=== PATIENT | female | born 1945 | race Caucasian/White ===

== ENCOUNTER 2018-10-22 09:52 | Day surgery (SDC) | payer OTHER ==
[2018-10-19 16:09] LABS: Absolute Lymphocytes (CBC) 2.4 K/uL (0.7-4.9); Basophils % 0.5 % (0-1.3); Hematocrit 47.5 % (36.0-45.0); MPV 9.9 fL (7.6-11.3); RBC Red Blood Cell Count 5.03 M/uL (3.86-4.86)
--- NOTE | 2018-10-19 16:09 | EKG ---
Test Date: 2018-10-19 Test Time: 15:05:24 Senior Health Consultant: JOSEPH MEASUREMENT RESULTS: Intervals: Rate: 86 NC: 168 QRSD: 78 QT: 362 QTc: 433 [place]: P: 52 NC: 168 QRS: -15 T: 30 INTERPRETIVE STATEMENTS: Normal sinus rhythm Voltage criteria for left ventricular hypertrophy Abnormal ECG Compared to ECG 12/31/2010 11:01:59 No significant changes Electronically Signed On 10-19-18 16:09:13 CDT by Drew Calero
[2018-10-19 16:25] LABS: BUN Blood Urea Nitrogen 10 mg/dL (7-18)
[2018-10-22] MEDS ORDERED: NA CHLORIDE 0.9% 1,000 ML ONE ×2 (09:56→13:34)
[2018-10-22] MEDS ORDERED: LIDOCAINE 1% W/EPI 1:100,000 MDV 20 ML VIAL ONE (10:01)
[2018-10-22] MEDS ORDERED: NA CHLORIDE 0.9% 500 ML ONE (10:05)
[2018-10-22] MEDS ORDERED: GLYCOPYRROLATE 0.2 MG/ML SYR ONE (10:21)
[2018-10-22] MEDS ORDERED: PROPOFOL 200 MG/20 ML VIAL IV ONE (10:21)
[2018-10-22] MEDS ORDERED: FENTANYL CITR 250 MCG/5 ML ONE (10:22)
[2018-10-22] MEDS ORDERED: dexAMETHasone 10 MG/ML VIAL ONE (10:22)
[2018-10-22] MEDS ORDERED: MIDAZOLAM HCL 2 MG/2 ML INJ ONE (10:22)
[2018-10-22] MEDS ORDERED: ROCURONIUM 50 MG/5 ML VIAL IV ONE (10:22)
[2018-10-22] MEDS ORDERED: LIDOCAINE 2% MPF 5 ML VIAL ONE (10:22)
[2018-10-22] MEDS: OXYMETAZOLINE HCL 0.05% 15ML NAS ONE ×4 (10:30→13:10)
[2018-10-22] MEDS ORDERED: Phenylephrine HCl 10 MG/ML 1 ML VIAL ONE (12:27)
[2018-10-22] MEDS ORDERED: FENTANYL CITR 100 MCG/2 ML ONE (12:57)
[2018-10-22] MEDS ORDERED: ACETAMINOPHEN 325 MG TABLET ONE (14:31)
--- NOTE | 2018-10-23 12:21 | OP ---
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 Procedure: Nasal endoscopy with excision of nasal cavity mass. Surgical Findings: Large inverting papilloma filling the left nasal cavity with attachment point schuyler und the superior turbinate. Indication For Procedure: Yisel Hernandez is a 72-year-old who presented to the [facility] in March with a complaint of cerumen impaction. Head and neck exam at that time revealed a left nasal cavity mass with surrounding infection. 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 The patient elected not to have the CT s can and did not follow up with the ENT clinic as instructed. She re-presented in August after her dent al hygienist was concerned about lymphadenopathy. On clinical exam, there was no palpable lymphadeno monica, but the left nasal cavity mass was again noted. Its appearance was not consistent with inflam matory polyp and a biopsy in the office was collected, which confirmed inverting papilloma. I discus sed these results with the patient over the telephone and she deferred decision making for surgery un til she could discuss with her . The patient presented for preoperative evaluation. A contra sted CT scan was ordered and performed approximately 48 hours prior to her surgery. In review of the CT findings, a distinct attachment point was not clearly defined, but my suspicion was for an attach ment point near the posterior ethmoid or sphenoid face near the area of the superior turbinate. Description Of Procedure: The patient was brought to the operating room. She was placed under gener al anesthesia via oral endotracheal tube. The head of bed was turned 90 degrees. The patient's nasa l mass prevented application of Afrin-soaked pledgets, but the nasal hairs were trimmed. A 0-degree endoscope was used to perform a left nasal endoscopy. Papillomatous tumor was filling the left nasal cavity, obstructing view of the middle turbinate, extending to the floor of the nasal cavity. A Patrick er elevator was used to gently palpate around the edges and attempt to locate an attachment point. T he anterior portion of the septum, floor of the nasal cavity, and anterior portion of the inferior tu rbinates were free from attachment. With further palpation, the anterior portion of the middle turbi sol appeared free from attachment. Therefore, in order to further investigate and find a point of a ttachment, the microdebrider was used to debulk the tumor starting from the inferior aspect and movin g inferior to superior and anterior to posterior. A large portion of the tumor was then grasped and removed using [place] for pathologic confirmation. After significant debulking of the tumor, a mod erate amount of bleeding was occurring and the nasal cavity was packed with multiple Afrin-soaked ple dgets. After several minutes, the bleeding was much improved. The packing was removed and further d ebulking of the tumor was feasible. The attachment point was indeed around the area of the superior turbinate and as much of the visible tumor as was feasible was removed, bleeding around the area of t he superior turbinate was cauterized using the Saul endoscopic cautery. A portion of the superior turbinate was removed in order to remove the possible attachment point. All visible papillomatous t umor was removed. Careful consideration was given to resection in this area in order to obtain a darek e microscopic margin. However, in review of the preoperative CT scan, I was concerned about the deep extent of the lesion in regard to adjacent structures including nerves and vasculature extending jus t posterior to the left maxillary sinus and in light of patient's low symptom burden, advanced age, a nd use of monitoring for recurrence in this area, decision was made to forego definitive resection of the bone and mucosa in this area. XeroGel dissolvable sinus packing was placed around the attachmen t site and the patient was returned to care of anesthesia for awakening and extubation in the operati ng room, which proceeded without difficulty. Disposition: The patient will be discharged home later today in the care of her family and follow up with Dr. Pyle in 10 days for evaluation of healing and careful monitoring over time. NALLELY/SOURAV Voice ID: [id number] Report ID: [id number]
== END 2018-10-22 15:30 | disposition home or self-care (01) ==
LOC: OR 09:52
PROVIDERS: ATTEND Otolaryngology
PROC: 09BK8ZZ Excision of Nasal Mucosa and Soft Tissue, Via Natural or Artificial Opening Endoscopic (ICD-10-PCS; principal; 2018-10-22 12:00)
DX: D14.0 Benign neoplasm of middle ear, nasal cavity and accessory sinuses (principal); E11.9 Type 2 diabetes mellitus without complications; I10 Essential (primary) hypertension; E07.9 Disorder of thyroid, unspecified; Z88.0 Allergy status to penicillin; Z88.2 Allergy status to sulfonamides; Z82.3 Family history of stroke; Z83.3 Family history of diabetes mellitus; Z82.49 Family history of ischemic heart disease and other diseases of the circulatory system
CPT/HCPCS: 93005; 85025; 36415; 82565; 82962 ×2; 84520; 88305; 31299; J2704; J2370; J2250; J3010 ×2; J1100; J7030 ×2